=== PATIENT | male | born 2005 | race Caucasian/White ===

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

== ENCOUNTER 2023-01-31 09:45 | Inpatient (IN) | payer OTHER ==
[~2023-01-31] VITALS: Ht 175.3 cm; Wt 70.5 kg
[2023-01-31 10:20] LABS: HEMATOCRIT 50.5 % (42.0-52.0); HEMOGLOBIN 17.3 g/dl (13.5-17.5); MEAN CORPUSCULAR HEMOGLOBIN 29.4 pg (27.0-33.0); MEAN CORPUSCULAR HGB CONC 34.3 g/dl (32.0-36.5); MEAN CORPUSCULAR VOLUME 85.9 fl (80.0-96.0); PLATELET COUNT, AUTOMATED 298 10^3/uL (150-450); RED BLOOD COUNT 5.88 10^6/uL (4.30-6.10); WHITE BLOOD COUNT 9.6 10^3/uL (4.0-10.0)
[2023-01-31] MEDS ORDERED: MED REC IN PROGRESS XX SCH (10:35)
[2023-01-31] MEDS ORDERED: HOME MED LIST COMPLETE! XX SCH (10:40)
[2023-01-31 10:49] LABS: BARBITURATES URINE NEGATIVE (NEGATIVE); BENZODIAZEPINES URINE NEGATIVE (NEGATIVE); COCAINE METABOLITE URINE NEGATIVE (NEGATIVE); METHADONE URINE NEGATIVE (NEGATIVE); OPIATES URINE NEGATIVE (NEGATIVE); PHENCYCLIDINE URINE NEGATIVE (NEGATIVE)
[2023-01-31 10:51] LABS: ETHYL ALCOHOL (ETHANOL) 0.005 % (0.000-0.010)
[2023-01-31 10:52] LABS: ALBUMIN 4.9 G/DL (3.2-5.2); ALKALINE PHOSPHATASE 75 U/L (46-116); ALT/SGPT 27 U/L (7.0-40); AST/SGOT 13 U/L (<34); BLOOD UREA NITROGEN 20 MG/DL (9-23); CALCIUM LEVEL 10.9 MG/DL (8.5-10.1); CARBON DIOXIDE LEVEL 24 MMOL/L (20-31); CHLORIDE LEVEL 105 MMOL/L (98-107); CREATININE FOR GFR 0.96 MG/DL (0.70-1.30); GLUCOSE, FASTING 92 MG/DL (60-100); POTASSIUM SERUM 3.7 MMOL/L (3.5-5.1); SALICYLATE LEVEL < 3.0 MG/DL (<30); SODIUM LEVEL 142 MMOL/L (136-145); TOTAL PROTEIN 7.6 G/DL (5.7-8.2)
[2023-01-31 11:10] LABS: AMPHETAMINES LEVEL URINE POSITIVE (NEGATIVE); CANNABINOIDS URINE POSITIVE (NEGATIVE)
[2023-01-31] MEDS ORDERED: IBUPROFEN 400MG TAB PO ONE (12:20)
[2023-01-31] MEDS ORDERED: MOM 30ML SUSPENSION UDC PO PRN (13:35)
[2023-01-31] MEDS ORDERED: MAALOX 30 ML SUSP *UDC PO PRN (13:35)
[2023-01-31 15:21] VITALS: BP 142/69; TEMP 98.5; O2SAT 98
[2023-02-01 06:10] VITALS: BP 137/78; TEMP 97.8; O2SAT 98
[2023-02-01] MEDS: diphenhydrAMINE 25MG CAP PO PRN (09:09)
[2023-02-01] MEDS: busPIRone 5 MG TAB PO SCH ×2 (12:04→21:03)
[2023-02-01 18:40] VITALS: BP 144/83; TEMP 97.7; O2SAT 98
[2023-02-01] MEDS ORDERED: DIVALPROEX 500MG *ER* TAB PO SCH (21:00)
[2023-02-01] MEDS: traZODone 50 MG TAB PO PRN (21:03)
[2023-02-02 06:39] VITALS: BP 149/84; TEMP 98.8; O2SAT 99
[2023-02-02] MEDS: busPIRone 5 MG TAB PO SCH ×2 (07:33→21:02)
[2023-02-02] MEDS: NICOTINE 21MG/24HR 1 EA TRANSDERMAL TD SCH (12:12)
[2023-02-02 17:25] VITALS: BP 129/77; TEMP 98; O2SAT 98
[2023-02-02] MEDS: traZODone 50 MG TAB PO PRN (21:02)
[2023-02-02] MEDS: DIVALPROEX 250MG *ER* TAB PO SCH (21:02)
[2023-02-03 06:34] VITALS: BP 127/72; TEMP 98.8; O2SAT 100
[2023-02-03] MEDS: busPIRone 5 MG TAB PO SCH ×2 (08:54→20:14)
[2023-02-03] MEDS: NICOTINE 21MG/24HR 1 EA TRANSDERMAL TD SCH (08:54)
[2023-02-03 16:36] VITALS: BP 148/73; TEMP 97.7; O2SAT 99
[2023-02-03] MEDS: traZODone 50 MG TAB PO PRN (20:14)
[2023-02-03] MEDS: DIVALPROEX 250MG *ER* TAB PO SCH (20:14)
[2023-02-04 06:13] VITALS: BP 132/67; TEMP 97.7; O2SAT 98
[2023-02-04] MEDS: busPIRone 5 MG TAB PO SCH ×2 (08:28→20:12)
[2023-02-04] MEDS: NICOTINE 21MG/24HR 1 EA TRANSDERMAL TD SCH (08:28)
[2023-02-04] MEDS: IBUPROFEN 400MG TAB PO PRN ×3 (08:37→21:37)
[2023-02-04] MEDS: diphenhydrAMINE 25MG CAP PO PRN ×2 (09:51→16:09)
[2023-02-04 16:35] VITALS: BP 134/85; TEMP 98.5; O2SAT 96
[2023-02-04] MEDS: ACETAMINOPHEN TAB 650MG DOSE (2X325MG) PO PRN (18:25)
[2023-02-04] MEDS: traZODone 50 MG TAB PO PRN (20:12)
[2023-02-04] MEDS: DIVALPROEX 250MG *ER* TAB PO SCH (20:12)
[2023-02-05 06:31] VITALS: BP 139/69; TEMP 98.1; O2SAT 97
[2023-02-05] MEDS: busPIRone 5 MG TAB PO SCH ×2 (08:39→20:13)
[2023-02-05] MEDS: NICOTINE 21MG/24HR 1 EA TRANSDERMAL TD SCH (08:39)
[2023-02-05] MEDS: IBUPROFEN 400MG TAB PO PRN ×2 (13:30→20:14)
[2023-02-05] MEDS: ACETAMINOPHEN TAB 650MG DOSE (2X325MG) PO PRN ×2 (15:39→22:48)
[2023-02-05] MEDS: diphenhydrAMINE 25MG CAP PO PRN ×2 (16:44→22:48)
[2023-02-05 18:13] VITALS: BP 140/67; TEMP 99; O2SAT 96
[2023-02-05] MEDS: BENZOCAINE 10% 9GM TUBE (ANBESOL) TOP PRN (20:13)
[2023-02-05] MEDS: traZODone 50 MG TAB PO PRN (20:14)
[2023-02-05] MEDS: DIVALPROEX 250MG *ER* TAB PO SCH (20:15)
[2023-02-06 06:26] VITALS: BP 145/76; TEMP 97.5; O2SAT 96
[2023-02-06] MEDS: NICOTINE 21MG/24HR 1 EA TRANSDERMAL TD SCH (09:05)
[2023-02-06] MEDS: busPIRone 5 MG TAB PO SCH ×2 (09:05→20:16)
[2023-02-06] MEDS: IBUPROFEN 400MG TAB PO PRN ×2 (09:49→17:52)
[2023-02-06] MEDS: BENZOCAINE 10% 9GM TUBE (ANBESOL) TOP PRN ×4 (09:50→18:46)
[2023-02-06] MEDS: diphenhydrAMINE 25MG CAP PO PRN ×2 (12:44→20:16)
[2023-02-06] MEDS: ACETAMINOPHEN TAB 650MG DOSE (2X325MG) PO PRN (12:45)
[2023-02-06] MEDS: PROPRANOLOL 10 MG TAB PO SCH ×2 (13:33→20:16)
[2023-02-06 16:40] VITALS: BP 142/78; TEMP 98.3; O2SAT 98
[2023-02-06 20:15] VITALS: BP 183/83
[2023-02-06] MEDS: traZODone 50 MG TAB PO PRN (20:15)
[2023-02-06] MEDS: DIVALPROEX 250MG *ER* TAB PO SCH (20:16)
[2023-02-07 06:46] VITALS: BP 137/58; TEMP 98.5; O2SAT 99
[2023-02-07 08:41] VITALS: BP 137/68
[2023-02-07] MEDS: PROPRANOLOL 10 MG TAB PO SCH (08:41)
[2023-02-07] MEDS: NICOTINE 21MG/24HR 1 EA TRANSDERMAL TD SCH (08:41)
[2023-02-07] MEDS: busPIRone 5 MG TAB PO SCH (08:41)
[2023-02-07] MEDS: IBUPROFEN 400MG TAB PO PRN (09:59)
[2023-02-07] MEDS ORDERED: PROP10TA56 PO (10:21)
[2023-02-07] MEDS ORDERED: NICO21PAT TD (10:21)
[2023-02-07] MEDS ORDERED: DEPA250T2 PO (10:21)
[2023-02-07] MEDS ORDERED: TRAZ-252 PO (10:21)
[2023-02-07] MEDS ORDERED: BUSP5TA PO (10:21)
[2023-02-07] MEDS ORDERED: HYDR-3363 PO (12:57)
== END 2023-02-07 11:30 | disposition home or self-care (01) | DRG 880 ==
LOC: M ED 09:45 → M ED INP 13:32 → M PSY 15:26
PROVIDERS: ADMIT Student in an Organized Health Care Education/Training Program; ATTEND Student in an Organized Health Care Education/Training Program
DX: F41.1 Generalized anxiety disorder (principal); R45.851 Suicidal ideations; F40.01 Agoraphobia with panic disorder; F17.200 Nicotine dependence, unspecified, uncomplicated; F15.10 Other stimulant abuse, uncomplicated; G47.00 Insomnia, unspecified; E80.6 Other disorders of bilirubin metabolism; F12.10 Cannabis abuse, uncomplicated; F90.9 Attention-deficit hyperactivity disorder, unspecified type; Z91.51 Personal history of suicidal behavior; Z56.0 Unemployment, unspecified; Z20.822 Contact with and (suspected) exposure to COVID-19; E83.52 Hypercalcemia; Z71.6 Tobacco abuse counseling

== ENCOUNTER 2023-02-17 13:55 | Outpatient (RCR) | payer OTHER ==
[~2023-02-17 13:55] MED LIST changes: +BUSP5TA PO; +DEPA250T2 PO; +HYDR-3363 PO; +NICO21PAT TD; +PROP10TA56 PO; +TRAZ-252 PO
== END 2023-02-19 ==
LOC: M OUTALCOH 13:55
PROVIDERS: ATTEND Psychiatry & Neurology Psychiatry
DX: F15.20 Other stimulant dependence, uncomplicated (principal); F11.20 Opioid dependence, uncomplicated; F12.10 Cannabis abuse, uncomplicated; F10.20 Alcohol dependence, uncomplicated; F17.200 Nicotine dependence, unspecified, uncomplicated

== ENCOUNTER 2023-03-21 16:00 | Outpatient (RCR) | payer OTHER | END 2023-03-22 | LOC: M OUTALCOH 16:00 | PROVIDERS: ATTEND Psychiatry & Neurology Child & Adolescent Psychiatry | DX: F15.20 Other stimulant dependence, uncomplicated (principal); F11.20 Opioid dependence, uncomplicated; F12.20 Cannabis dependence, uncomplicated; F10.20 Alcohol dependence, uncomplicated; F17.200 Nicotine dependence, unspecified, uncomplicated ==

== ENCOUNTER → 2023-03-22 | Outpatient (RCR) | payer OTHER | LOC: M OUTALCOH 16:11 | PROVIDERS: ATTEND Psychiatry & Neurology Psychiatry | DX: F15.20 Other stimulant dependence, uncomplicated (principal); F11.20 Opioid dependence, uncomplicated; F12.20 Cannabis dependence, uncomplicated; F10.20 Alcohol dependence, uncomplicated; F17.200 Nicotine dependence, unspecified, uncomplicated ==

== ENCOUNTER 2023-03-31 21:37 | Inpatient (IN) | payer OTHER ==
[~2023-03-31] VITALS: Ht 175.3 cm; Wt 86.0 kg
[2023-03-31] MEDS ORDERED: NICO1DIS12 TOP (22:49)
[2023-03-31] MEDS ORDERED: HYDR50TA70 PO (22:49)
[2023-03-31] MEDS ORDERED: TRAZ-252 PO (22:49)
[2023-03-31] MEDS ORDERED: PROP10TA56 PO (22:49)
[2023-03-31] MEDS ORDERED: DIVA250T7 PO (22:49)
[2023-03-31] MEDS ORDERED: BUSP15TA47 PO (22:49)
[2023-03-31] MEDS ORDERED: HOME MED LIST COMPLETE! XX SCH (22:50)
[2023-03-31 23:00] LABS: HEMATOCRIT 43.8 % (42.0-52.0); MEAN CORPUSCULAR HEMOGLOBIN 30.4 pg (27.0-33.0); MEAN CORPUSCULAR HGB CONC 34.2 g/dl (32.0-36.5); MEAN CORPUSCULAR VOLUME 88.7 fl (80.0-96.0); PLATELET COUNT, AUTOMATED 183 10^3/uL (150-450); RED BLOOD COUNT 4.94 10^6/uL (4.30-6.10)
[2023-03-31 23:17] LABS: AMPHETAMINES LEVEL URINE NEGATIVE (NEGATIVE); BARBITURATES URINE NEGATIVE (NEGATIVE); BENZODIAZEPINES URINE NEGATIVE (NEGATIVE); COCAINE METABOLITE URINE NEGATIVE (NEGATIVE); METHADONE URINE NEGATIVE (NEGATIVE); OPIATES URINE NEGATIVE (NEGATIVE); PHENCYCLIDINE URINE NEGATIVE (NEGATIVE)
[2023-03-31 23:18] LABS: CANNABINOIDS URINE POSITIVE (NEGATIVE)
[2023-03-31 23:19] LABS: ETHYL ALCOHOL (ETHANOL) 0.008 % (0.000-0.010)
[2023-03-31 23:20] LABS: SALICYLATE LEVEL < 3.0 MG/DL (<30)
[2023-03-31 23:21] LABS: ALKALINE PHOSPHATASE 49 U/L (46-116); ALT/SGPT 18 U/L (7.0-40); AST/SGOT < 8 U/L (<34); BILIRUBIN,DIRECT 0.3 MG/DL (<0.4); BILIRUBIN,TOTAL 0.9 MG/DL (0.3-1.2); BLOOD UREA NITROGEN 14 MG/DL (9-23); CARBON DIOXIDE LEVEL 27 MMOL/L (20-31); CHLORIDE LEVEL 107 MMOL/L (98-107); CREATININE FOR GFR 0.96 MG/DL (0.70-1.30); GLUCOSE, FASTING 74 MG/DL (60-100); POTASSIUM SERUM 3.8 MMOL/L (3.5-5.1); SODIUM LEVEL 141 MMOL/L (136-145); TOTAL PROTEIN 6.6 G/DL (5.7-8.2)
[2023-03-31 23:23] LABS: THYROID STIMULATING HORMONE 2.012 uIU/ML (0.48-4.17)
[2023-04-01] MEDS ORDERED: MAALOX 30 ML SUSP *UDC PO PRN (03:10)
[2023-04-01] MEDS ORDERED: ACETAMINOPHEN TAB 650MG DOSE (2X325MG) PO PRN (03:10)
[2023-04-01] MEDS ORDERED: MOM 30ML SUSPENSION UDC PO PRN (03:10)
[2023-04-01 05:07] VITALS: BP 105/57; TEMP 97.6; O2SAT 98
[2023-04-01] MEDS: diphenhydrAMINE 25MG CAP PO PRN (15:35)
[2023-04-01 16:29] VITALS: BP 138/78; TEMP 98.5; O2SAT 98
[2023-04-01] MEDS: busPIRone 5 MG TAB PO SCH (20:11)
[2023-04-01] MEDS: traZODone 50 MG TAB PO PRN (20:11)
[2023-04-01] MEDS: DIVALPROEX 250MG *ER* TAB PO SCH (20:12)
[2023-04-01] MEDS: PROPRANOLOL 10 MG TAB PO SCH (20:12)
[2023-04-02 06:28] VITALS: BP 138/59; TEMP 97.9; O2SAT 98
[2023-04-02] MEDS: hydrOXYzine 50 MG TAB PO PRN (11:50)
[2023-04-02] MEDS: OLANZapine ORAL DISINTEGRATING TAB 5MG PO PRN (14:14)
[2023-04-02 15:25] VITALS: BP 119/76; TEMP 97.8; O2SAT 100
[2023-04-03 06:27] VITALS: BP 143/61; TEMP 96.7; O2SAT 98
[2023-04-03 08:20] VITALS: BP 136/78
[2023-04-03 18:23] VITALS: BP 151/82; TEMP 98.1; O2SAT 98
[2023-04-03 20:19] VITALS: BP 160/98
[2023-04-03] MEDS: OLANZapine 2.5MG TABLET PO SCH (20:21)
[2023-04-04] MEDS: IBUPROFEN 400MG TAB PO PRN (00:04)
[2023-04-04 06:08] VITALS: BP 119/71; TEMP 96.2; O2SAT 99
[2023-04-04 09:36] LABS: CHOLESTEROL RISK RATIO 3.11 (<5); LDL CHOLESTEROL 97.4 MG/DL (<100)
[2023-04-04 14:39] VITALS: BP 179/102
[2023-04-04 18:33] VITALS: BP 155/85; TEMP 97.3; O2SAT 98
[2023-04-04 21:49] VITALS: BP 138/82; O2SAT 68
[2023-04-05 06:52] VITALS: BP 133/57; TEMP 96.4; O2SAT 96
[2023-04-05 14:50] VITALS: BP 140/90; TEMP 98.5; O2SAT 98
[2023-04-06 06:27] VITALS: BP 104/59; TEMP 96.6; O2SAT 97
[2023-04-06 08:22] VITALS: BP 154/69
[2023-04-06] MEDS ORDERED: DIVA250T7 PO (12:28)
[2023-04-06] MEDS ORDERED: OLAN2.5T25 PO (12:28)
[2023-04-06] MEDS ORDERED: TRAZ-252 PO (12:28)
[2023-04-06] MEDS ORDERED: BUSP15TA47 PO (12:28)
== END 2023-04-06 12:57 | disposition home or self-care (01) | DRG 880 ==
LOC: M ED 21:37 → M ED INP 04-01 03:10 → M PSY 04-01 04:21
PROVIDERS: ADMIT Student in an Organized Health Care Education/Training Program; ATTEND Student in an Organized Health Care Education/Training Program
DX: F41.1 Generalized anxiety disorder (principal); R45.851 Suicidal ideations; F32.89 Other specified depressive episodes; F15.10 Other stimulant abuse, uncomplicated; F10.10 Alcohol abuse, uncomplicated; F60.89 Other specific personality disorders; Z63.5 Disruption of family by separation and divorce; Z91.51 Personal history of suicidal behavior; Z91.52 Personal history of nonsuicidal self-harm; Z79.899 Other long term (current) drug therapy

== ENCOUNTER 2023-05-17 18:44 | Emergency (ER) | payer OTHER ==
[~2023-05-17] VITALS: Ht 175.3 cm; Wt 93.2 kg
[~2023-05-17 18:44] MED LIST changes: +BUSP15TA47 PO; +DIVA250T7 PO; +HYDR50TA70 PO; +NICO1DIS12 TOP; +OLAN2.5T25 PO
[2023-05-17] MEDS ORDERED: PROP20TA72 PO (18:57)
[2023-05-17] MEDS ORDERED: OLAN5ZYD (18:57)
[2023-05-17 19:31] LABS: BASO # 0.1 10^3/uL (0.0-0.2); BASO % 1.4 % (0.0-1.0); EOS # 0.7 10^3/uL (0.0-0.5); EOS % 8.5 % (0.0-3.0); HEMATOCRIT 45.1 % (42.0-52.0); HEMOGLOBIN 15.8 g/dl (13.5-17.5); LYMPH # 1.7 10^3/uL (1.5-5.0); LYMPH % 20.9 % (24.0-44.0); MEAN CORPUSCULAR HEMOGLOBIN 30.2 pg (27.0-33.0); MEAN CORPUSCULAR VOLUME 86.1 fl (80.0-96.0); MONO # 0.8 10^3/uL (0.0-0.8); MONO % 10.1 % (2.0-8.0); NEUTROPHILS # 4.8 10^3/uL (1.5-8.5); NEUTROPHILS % 58.9 % (36.0-66.0); PLATELET COUNT, AUTOMATED 228 10^3/uL (150-450); RED BLOOD COUNT 5.24 10^6/uL (4.30-6.10); WHITE BLOOD COUNT 8.1 10^3/uL (4.0-10.0)
[2023-05-17 19:50] LABS: ETHYL ALCOHOL (ETHANOL) 0.005 % (0.000-0.010)
[2023-05-17 19:52] LABS: ALBUMIN 4.1 G/DL (3.2-5.2); ALKALINE PHOSPHATASE 60 U/L (46-116); ALT/SGPT 19 U/L (7.0-40); AST/SGOT 12 U/L (<34); BILIRUBIN,DIRECT 0.8 MG/DL (<0.4); BILIRUBIN,TOTAL 2.7 MG/DL (0.3-1.2); BLOOD UREA NITROGEN 19 MG/DL (9-23); CALCIUM LEVEL 9.7 MG/DL (8.5-10.1); CARBON DIOXIDE LEVEL 26 MMOL/L (20-31); CHLORIDE LEVEL 107 MMOL/L (98-107); CREATININE FOR GFR 0.88 MG/DL (0.70-1.30); GLUCOSE, FASTING 88 MG/DL (60-100); POTASSIUM SERUM 3.9 MMOL/L (3.5-5.1); SALICYLATE LEVEL < 3.0 MG/DL (<30); SODIUM LEVEL 139 MMOL/L (136-145)
[2023-05-17 19:54] LABS: THYROID STIMULATING HORMONE 0.866 uIU/ML (0.48-4.17)
[2023-05-17] MEDS ORDERED: OLAN5ZYD PO ×2 (20:07)
[2023-05-17] MEDS ORDERED: DIVA250T67 PO (20:07)
[2023-05-17] MEDS ORDERED: TRAZ-257 PO (20:09)
[2023-05-17] MEDS ORDERED: HOME MED LIST COMPLETE! XX SCH (20:45)
[2023-05-17 21:13] LABS: BARBITURATES URINE NEGATIVE (NEGATIVE); BENZODIAZEPINES URINE NEGATIVE (NEGATIVE); COCAINE METABOLITE URINE NEGATIVE (NEGATIVE); METHADONE URINE NEGATIVE (NEGATIVE); OPIATES URINE NEGATIVE (NEGATIVE); PHENCYCLIDINE URINE NEGATIVE (NEGATIVE)
[2023-05-17 21:16] LABS: AMPHETAMINES LEVEL URINE POSITIVE (NEGATIVE); CANNABINOIDS URINE POSITIVE (NEGATIVE)
[2023-05-17] MEDS: busPIRone 5 MG TAB PO ONE (21:37)
[2023-05-17] MEDS: traZODone 100 MG TAB PO ONE (21:38)
[2023-05-17] MEDS: DIVALPROEX 250MG TAB PO ONE ×2 (21:38→21:52)
[2023-05-17] MEDS: OLANZapine 5 MG TAB PO ONE (21:38)
[2023-05-17 23:16] VITALS: BP 156/63
[2023-05-17] MEDS: PROPRANOLOL 20 MG TAB PO ONE (23:16)
[2023-05-18 00:18] VITALS: BP 131/60; TEMP 98.2; O2SAT 99
== END 2023-05-18 00:26 | disposition home or self-care (01) ==
LOC: M ED 18:44
DX: F43.0 Acute stress reaction (principal); F32.A Depression, unspecified; F31.9 Bipolar disorder, unspecified; F41.9 Anxiety disorder, unspecified; F17.200 Nicotine dependence, unspecified, uncomplicated; F12.10 Cannabis abuse, uncomplicated; Z79.899 Other long term (current) drug therapy

== ENCOUNTER 2023-08-05 03:14 | Inpatient (IN) | payer OTHER ==
[~2023-08-05] VITALS: Ht 177.8 cm; Wt 102.3 kg
[~2023-08-05 03:14] MED LIST changes: +DIVA250T67 PO; +OLAN5ZYD; +OLAN5ZYD PO; +ONDA-282; -ONDA4TAB6; +PROP20TA72 PO; +TRAZ-257 PO
[2023-08-05] MEDS ORDERED: LEXA1TAB2 PO (03:49)
[2023-08-05] MEDS ORDERED: DOXE10CA PO (03:49)
[2023-08-05 03:55] LABS: HEMATOCRIT 46.3 % (42.0-52.0); HEMOGLOBIN 16.3 g/dl (13.5-17.5); MEAN CORPUSCULAR HEMOGLOBIN 29.4 pg (27.0-33.0); MEAN CORPUSCULAR HGB CONC 35.2 g/dl (32.0-36.5); MEAN CORPUSCULAR VOLUME 83.4 fl (80.0-96.0); PLATELET COUNT, AUTOMATED 346 10^3/uL (150-450); RED BLOOD COUNT 5.55 10^6/uL (4.30-6.10); WHITE BLOOD COUNT 16.5 10^3/uL (4.0-10.0)
[2023-08-05 04:14] LABS: AMPHETAMINES LEVEL URINE NEGATIVE (NEGATIVE); BARBITURATES URINE NEGATIVE (NEGATIVE); BENZODIAZEPINES URINE NEGATIVE (NEGATIVE); METHADONE URINE NEGATIVE (NEGATIVE); OPIATES URINE NEGATIVE (NEGATIVE)
[2023-08-05 04:15] LABS: PHENCYCLIDINE URINE NEGATIVE (NEGATIVE)
[2023-08-05 04:16] LABS: CANNABINOIDS URINE POSITIVE (NEGATIVE); COCAINE METABOLITE URINE POSITIVE (NEGATIVE)
[2023-08-05 04:17] LABS: ETHYL ALCOHOL (ETHANOL) 0.082 % (0.000-0.010)
[2023-08-05 04:19] LABS: ALBUMIN 4.5 G/DL (3.2-5.2); ALKALINE PHOSPHATASE 74 U/L (46-116); ALT/SGPT 19 U/L (7.0-40); AST/SGOT 13 U/L (<34); BILIRUBIN,DIRECT 0.4 MG/DL (<0.4); BILIRUBIN,TOTAL 1.3 MG/DL (0.3-1.2); BLOOD UREA NITROGEN 12 MG/DL (9-23); CALCIUM LEVEL 10.2 MG/DL (8.5-10.1); CARBON DIOXIDE LEVEL 23 MMOL/L (20-31); CHLORIDE LEVEL 102 MMOL/L (98-107); CREATININE FOR GFR 0.97 MG/DL (0.70-1.30); GLUCOSE, FASTING 86 MG/DL (60-100); POTASSIUM SERUM 3.5 MMOL/L (3.5-5.1); SALICYLATE LEVEL < 3.0 MG/DL (<30); SODIUM LEVEL 137 MMOL/L (136-145); TOTAL PROTEIN 7.6 G/DL (5.7-8.2)
[2023-08-05 04:21] LABS: THYROID STIMULATING HORMONE 1.943 uIU/ML (0.48-4.17)
[2023-08-05] MEDS ORDERED: MOM 30ML SUSPENSION UDC PO PRN (06:35)
[2023-08-05] MEDS ORDERED: IBUPROFEN 400MG TAB PO PRN (06:35)
[2023-08-05] MEDS ORDERED: traZODone 50 MG TAB PO PRN (06:35)
[2023-08-05] MEDS ORDERED: ACETAMINOPHEN TAB 650MG DOSE (2X325MG) PO PRN (06:35)
[2023-08-05] MEDS ORDERED: MAALOX 30 ML SUSP *UDC PO PRN (06:35)
[2023-08-05 08:32] VITALS: BP 140/70; TEMP 97.5; O2SAT 99
[2023-08-05] MEDS ORDERED: BUSP30TA PO (09:19)
[2023-08-05] MEDS ORDERED: OLAN10TA12 PO (09:19)
[2023-08-05] MEDS ORDERED: LATU20TA PO (09:21)
[2023-08-05] MEDS ORDERED: HOME MED LIST COMPLETE! XX SCH (09:25)
[2023-08-05 16:12] VITALS: BP 141/77; TEMP 97.5; O2SAT 100
[2023-08-05] MEDS: PROPRANOLOL 20 MG TAB PO SCH (21:53)
[2023-08-05] MEDS: DOXEPIN 25 MG CAP PO SCH (21:53)
[2023-08-05] MEDS: DIVALPROEX 500MG *ER* TAB PO SCH (21:53)
[2023-08-05] MEDS: busPIRone 10 MG TAB PO SCH (21:54)
[2023-08-05] MEDS: LURASIDONE 20 MG TAB (LATUDA) PO SCH (21:54)
[2023-08-05 22:00] VITALS: BP 140/89
[2023-08-06 06:23] VITALS: BP 114/79; TEMP 98; O2SAT 98
[2023-08-06 06:24] VITALS: BP 114/79
[2023-08-06 08:16] LABS: BASO # 0.1 10^3/uL (0.0-0.2); BASO % 1.2 % (0.0-1.0); EOS # 0.6 10^3/uL (0.0-0.5); HEMATOCRIT 46.1 % (42.0-52.0); HEMOGLOBIN 15.7 g/dl (13.5-17.5); LYMPH # 1.2 10^3/uL (1.5-5.0); LYMPH % 17.6 % (24.0-44.0); MEAN CORPUSCULAR HEMOGLOBIN 29.4 pg (27.0-33.0); MEAN CORPUSCULAR HGB CONC 34.1 g/dl (32.0-36.5); MEAN CORPUSCULAR VOLUME 86.3 fl (80.0-96.0); MONO # 0.6 10^3/uL (0.0-0.8); MONO % 8.5 % (2.0-8.0); NEUTROPHILS # 4.2 10^3/uL (1.5-8.5); NEUTROPHILS % 63.4 % (36.0-66.0); PLATELET COUNT, AUTOMATED 251 10^3/uL (150-450); RED BLOOD COUNT 5.34 10^6/uL (4.30-6.10); WHITE BLOOD COUNT 6.6 10^3/uL (4.0-10.0)
[2023-08-06 08:54] LABS: ALBUMIN 3.7 G/DL (3.2-5.2); ALKALINE PHOSPHATASE 62 U/L (46-116); ALT/SGPT 16 U/L (7.0-40); AST/SGOT 8 U/L (<34); BILIRUBIN,TOTAL 1.6 MG/DL (0.3-1.2); BLOOD UREA NITROGEN 13 MG/DL (9-23); CALCIUM LEVEL 9.7 MG/DL (8.5-10.1); CARBON DIOXIDE LEVEL 30 MMOL/L (20-31); CHLORIDE LEVEL 104 MMOL/L (98-107); CREATININE FOR GFR 0.87 MG/DL (0.70-1.30); GLUCOSE, FASTING 92 MG/DL (60-100); POTASSIUM SERUM 4.3 MMOL/L (3.5-5.1); SODIUM LEVEL 138 MMOL/L (136-145); TOTAL PROTEIN 6.4 G/DL (5.7-8.2)
[2023-08-06] MEDS: diphenhydrAMINE 25MG CAP PO PRN (10:41)
[2023-08-06] MEDS: NICOTINE 21MG/24HR 1 EA TRANSDERMAL TD PRN (11:22)
[2023-08-06] MEDS: OLANZapine ORAL DISINTEGRATING TAB 5MG PO PRN (12:42)
[2023-08-06] MEDS: ESCITALOPRAM OXALATE 10 MG TAB (LEXAPRO) PO SCH (12:42)
[2023-08-07 06:27] VITALS: BP 116/56; TEMP 97.7; O2SAT 97
[2023-08-07 09:48] VITALS: BP 149/71
[2023-08-07] MEDS ORDERED: NICO21PAT TD (10:01)
== END 2023-08-07 13:42 | disposition home or self-care (01) | DRG 881 ==
LOC: M ED 03:14 → M ED INP 06:32 → M PSY 08:25
PROVIDERS: ADMIT Student in an Organized Health Care Education/Training Program; ATTEND Student in an Organized Health Care Education/Training Program
DX: F32.A Depression, unspecified (principal); R45.851 Suicidal ideations; F17.210 Nicotine dependence, cigarettes, uncomplicated; Z63.0 Problems in relationship with spouse or partner; Z79.899 Other long term (current) drug therapy

== ENCOUNTER 2023-09-04 20:01 | Inpatient (IN) | payer OTHER ==
[~2023-09-04] VITALS: Ht 177.8 cm; Wt 97.0 kg
[~2023-09-04 20:01] MED LIST changes: +BUSP30TA PO; +DOXE10CA PO; +LATU20TA PO; +LEXA1TAB2 PO; +OLAN10TA12 PO
[2023-09-04 21:10] LABS: ETHYL ALCOHOL (ETHANOL) < 0.003 % (0.000-0.010)
[2023-09-04 21:12] LABS: ALKALINE PHOSPHATASE 67 U/L (46-116); ALT/SGPT 20 U/L (7.0-40); AST/SGOT 24 U/L (<34); BILIRUBIN,DIRECT 0.8 MG/DL (<0.4); BILIRUBIN,TOTAL 2.8 MG/DL (0.3-1.2); BLOOD UREA NITROGEN 12 MG/DL (9-23); CALCIUM LEVEL 9.7 MG/DL (8.5-10.1); CARBON DIOXIDE LEVEL 28 MMOL/L (20-31); CHLORIDE LEVEL 103 MMOL/L (98-107); CREATININE FOR GFR 0.87 MG/DL (0.70-1.30); GLUCOSE, FASTING 91 MG/DL (60-100); POTASSIUM SERUM 3.6 MMOL/L (3.5-5.1); SALICYLATE LEVEL < 3.0 MG/DL (<30); SODIUM LEVEL 138 MMOL/L (136-145)
[2023-09-04 21:15] LABS: HEMATOCRIT 43.1 % (42.0-52.0); HEMOGLOBIN 15.1 g/dl (13.5-17.5); MEAN CORPUSCULAR HEMOGLOBIN 29.6 pg (27.0-33.0); MEAN CORPUSCULAR VOLUME 84.5 fl (80.0-96.0); PLATELET COUNT, AUTOMATED 229 10^3/uL (150-450); THYROID STIMULATING HORMONE 0.824 uIU/ML (0.48-4.17)
[2023-09-04] MEDS: LORazepam 0.5 MG TAB PO ONE (21:51)
[2023-09-04] MEDS: ACETAMINOPHEN 500 MG TAB PO ONE (21:51)
[2023-09-04] MEDS: MAGIC MOUTHWASH 5ML ORAL SYRINGE SS ONE (22:01)
[2023-09-05] MEDS ORDERED: DOXE25CA PO (01:42)
[2023-09-05] MEDS ORDERED: NICO21PAT TOP (01:42)
[2023-09-05] MEDS ORDERED: HOME MED LIST COMPLETE! XX SCH (01:45)
[2023-09-05] MEDS: hydrOXYzine 50 MG TAB PO ONE (13:34)
[2023-09-05] MEDS ORDERED: MAALOX 30 ML SUSP *UDC PO PRN (14:15)
[2023-09-05] MEDS ORDERED: IBUPROFEN 400MG TAB PO PRN (14:15)
[2023-09-05] MEDS ORDERED: MOM 30ML SUSPENSION UDC PO PRN (14:15)
[2023-09-05 15:48] LABS: BARBITURATES URINE NEGATIVE (NEGATIVE); BENZODIAZEPINES URINE NEGATIVE (NEGATIVE); COCAINE METABOLITE URINE NEGATIVE (NEGATIVE); METHADONE URINE NEGATIVE (NEGATIVE); OPIATES URINE NEGATIVE (NEGATIVE); PHENCYCLIDINE URINE NEGATIVE (NEGATIVE)
[2023-09-05 15:57] LABS: AMPHETAMINES LEVEL URINE POSITIVE (NEGATIVE); CANNABINOIDS URINE POSITIVE (NEGATIVE)
[2023-09-05] MEDS: diphenhydrAMINE 25MG CAP PO PRN (20:02)
[2023-09-05] MEDS: traZODone 50 MG TAB PO PRN (20:02)
[2023-09-05] MEDS: ACETAMINOPHEN TAB 650MG DOSE (2X325MG) PO PRN (20:18)
[2023-09-05] MEDS: OLANZapine ORAL DISINTEGRATING TAB 5MG PO PRN (21:34)
[2023-09-05] MEDS: NICOTINE POLACRILEX 2 MG GUM PO PRN (21:35)
[2023-09-06 06:31] VITALS: BP 138/79; TEMP 97.9; O2SAT 100
[2023-09-06] MEDS: LIDOCAINE 5% (LIDODERM) PATCH TD SCH (09:00)
[2023-09-06] MEDS: BACITRACIN OINTMENT 30GM TUBE TOP SCH (09:00)
[2023-09-06] MEDS ORDERED: CHLORASEPTIC SPRAY MT PRN (10:00)
[2023-09-06] MEDS ORDERED: hydrOXYzine 50 MG TAB PO PRN (13:45)
[2023-09-06] MEDS: busPIRone 10 MG TAB PO SCH (15:08)
[2023-09-06] MEDS: PROPRANOLOL 20 MG TAB PO SCH (15:08)
[2023-09-06] MEDS: ESCITALOPRAM OXALATE 10 MG TAB (LEXAPRO) PO SCH (15:08)
[2023-09-06 17:29] VITALS: BP 148/71; TEMP 98.3
[2023-09-06] MEDS: DIVALPROEX 250MG *ER* TAB PO SCH (21:48)
[2023-09-06] MEDS: LURASIDONE 20 MG TAB (LATUDA) PO SCH (21:48)
[2023-09-07 06:34] VITALS: BP 144/74; TEMP 96.7; O2SAT 98
[2023-09-07 18:56] VITALS: BP 139/76; TEMP 98.1; O2SAT 100
[2023-09-08] MEDS ORDERED: busPIRone 10 MG TAB As Ordered ONE (10:07)
[2023-09-08] MEDS ORDERED: ESCITALOPRAM OXALATE 10 MG TAB (LEXAPRO) As Ordered ONE (10:07)
[2023-09-08] MEDS ORDERED: PROPRANOLOL 20 MG TAB As Ordered ONE (10:07)
[2023-09-08] MEDS ORDERED: LIDOCAINE 5% (LIDODERM) PATCH As Ordered ONE (10:07)
[2023-09-08 10:14] VITALS: BP 139/89
== END 2023-09-08 14:02 | disposition home or self-care (01) | DRG 881 ==
LOC: M ED 20:01 → M ED INP 09-05 14:11 → M PSY 09-05 16:28
PROVIDERS: ADMIT Student in an Organized Health Care Education/Training Program; ATTEND Student in an Organized Health Care Education/Training Program
DX: F32.A Depression, unspecified (principal); F90.9 Attention-deficit hyperactivity disorder, unspecified type; F41.1 Generalized anxiety disorder; F40.01 Agoraphobia with panic disorder; F15.10 Other stimulant abuse, uncomplicated; F12.10 Cannabis abuse, uncomplicated; F17.290 Nicotine dependence, other tobacco product, uncomplicated; T43.012A Poisoning by tricyclic antidepressants, intentional self-harm, initial encounter; T43.212A Poisoning by selective serotonin and norepinephrine reuptake inhibitors, intentional self-harm, initial encounter; F60.81 Narcissistic personality disorder; F60.2 Antisocial personality disorder; T43.595A Adverse effect of other antipsychotics and neuroleptics, initial encounter; F60.3 Borderline personality disorder; Z79.899 Other long term (current) drug therapy; Z63.5 Disruption of family by separation and divorce; Z56.0 Unemployment, unspecified; Z91.51 Personal history of suicidal behavior

== ENCOUNTER 2023-11-15 15:53 | Emergency (ER) | payer OTHER ==
[~2023-11-15] VITALS: Ht 177.8 cm; Wt 104.1 kg
[~2023-11-15 15:53] MED LIST changes: +DOXE25CA PO; +NICO21PAT TOP
[2023-11-15] MEDS ORDERED: AMOX875T2 (16:06)
[2023-11-15] MEDS ORDERED: BUPR1FIL (16:06)
[2023-11-15] MEDS ORDERED: LURA40TA2 (16:06)
[2023-11-16] MEDS ORDERED: IBUP-1022 PO (00:26)
[2023-11-16] MEDS ORDERED: METH-1164 PO (00:26)
[2023-11-16] MEDS ORDERED: CEPH500C PO (00:26)
[2023-11-16] MEDS: CEPHALEXIN 500 MG CAP PO ONE (00:35)
[2023-11-16] MEDS: methocarbamoL 500 MG TAB PO ONE (00:36)
[2023-11-16] MEDS: IBUPROFEN 600MG TAB PO ONE (00:36)
[2023-11-16] MEDS: BOOSTRIX VACCINE (TETANUS/DIPHTH/ACEL. PERTUSSIS) 0.5ML SYR IM ONE (00:37)
[2023-11-16 00:44] VITALS: BP 127/70; TEMP 98.4; O2SAT 98
== END 2023-11-16 00:47 | disposition home or self-care (01) ==
LOC: M ED 15:53
DX: S13.4XXA Sprain of ligaments of cervical spine, initial encounter (principal); Y92.9 Unspecified place or not applicable; Y93.9 Activity, unspecified; Y99.9 Unspecified external cause status; I10 Essential (primary) hypertension; F31.9 Bipolar disorder, unspecified; Z79.2 Long term (current) use of antibiotics; Z79.1 Long term (current) use of non-steroidal anti-inflammatories (NSAID); Z79.899 Other long term (current) drug therapy

== ENCOUNTER 2024-01-11 21:17 | Emergency (ER) | payer OTHER ==
[~2024-01-11] VITALS: Ht 177.8 cm; Wt 92.6 kg
[~2024-01-11 21:17] MED LIST changes: +AMOX875T2; +BUPR1FIL; +CEPH500C PO; +IBUP-1022 PO; +LURA40TA2; +METH-1164 PO; -OLAN2.5T25 PO; +OLAN2.5T53 PO
[2024-01-11] MEDS ORDERED: KETOROLAC 30 MG/ML 1ML VIAL IV ONE (23:00)
[2024-01-11] MEDS ORDERED: ISOVUE-370 76% 100ML VIAL As Ordered ONE (23:39)
[2024-01-12] VITALS: BP 136/75
[2024-01-12 00:02] VITALS: TEMP 98.1; O2SAT 99
[2024-01-12] MEDS ORDERED: CLEO300C2 PO (00:32)
== END 2024-01-12 00:12 | disposition left against medical advice (07) ==
LOC: M ED 21:17
DX: K08.89 Other specified disorders of teeth and supporting structures (principal); Z79.1 Long term (current) use of non-steroidal anti-inflammatories (NSAID); Z79.2 Long term (current) use of antibiotics; Z79.899 Other long term (current) drug therapy; Z53.9 Procedure and treatment not carried out, unspecified reason

== ENCOUNTER → 2024-01-29 | Outpatient (CLI) | payer OTHER ==
[~2024-01-29] MED LIST changes: +CLEO300C2 PO
== END ==
LOC: M SOG 07:55
PROVIDERS: ATTEND Physician Assistant
DX: M54.50 Low back pain, unspecified (principal)

== ENCOUNTER → 2024-01-30 | Outpatient (CLI) | payer OTHER | LOC: M SOG 15:59 | PROVIDERS: ATTEND Physician Assistant | DX: M25.512 Pain in left shoulder (principal); M25.561 Pain in right knee ==

== ENCOUNTER → 2024-02-09 | Outpatient (CLI) | payer OTHER | LOC: M SOG 02-08 14:41 | PROVIDERS: ATTEND Physician Assistant | DX: M54.50 Low back pain, unspecified (principal); M53.86 Other specified dorsopathies, lumbar region ==

== ENCOUNTER 2024-05-07 16:55 | Inpatient (IN) | payer OTHER ==
[~2024-05-07] VITALS: Ht 175.3 cm; Wt 96.2 kg
[~2024-05-07 16:55] MED LIST changes: -LURA40TA2; +LURA40TA2 PO
[2024-05-07] MEDS ORDERED: DEXTROAMP-AMPHETAMIN (17:00)
[2024-05-07] MEDS ORDERED: AMPH1CAP16 PO (17:00)
[2024-05-07 17:57] LABS: HEMATOCRIT 48.9 % (42.0-52.0); HEMOGLOBIN 16.8 g/dl (13.5-17.5); MEAN CORPUSCULAR HEMOGLOBIN 29.3 pg (27.0-33.0); MEAN CORPUSCULAR HGB CONC 34.4 g/dl (32.0-36.5); MEAN CORPUSCULAR VOLUME 85.2 fl (80.0-96.0); PLATELET COUNT, AUTOMATED 278 10^3/uL (150-450); RED BLOOD COUNT 5.74 10^6/uL (4.30-6.10)
[2024-05-07] MEDS ORDERED: ADDE20TA PO (18:06)
[2024-05-07] MEDS ORDERED: HOME MED LIST COMPLETE! XX SCH (18:10)
[2024-05-07 18:23] LABS: PHENCYCLIDINE URINE NEGATIVE (NEGATIVE)
[2024-05-07 18:24] LABS: BARBITURATES URINE NEGATIVE (NEGATIVE); COCAINE METABOLITE URINE NEGATIVE (NEGATIVE); METHADONE URINE NEGATIVE (NEGATIVE)
[2024-05-07 18:26] LABS: AMPHETAMINES LEVEL URINE POSITIVE (NEGATIVE); BENZODIAZEPINES URINE POSITIVE (NEGATIVE); CANNABINOIDS URINE POSITIVE (NEGATIVE); OPIATES URINE POSITIVE (NEGATIVE)
[2024-05-07 18:28] LABS: ALBUMIN 4.4 G/DL (3.2-5.2); ALKALINE PHOSPHATASE 69 U/L (40-129); ALT/SGPT 20 U/L (7.0-40); AST/SGOT 9 U/L (<34); BILIRUBIN,DIRECT 0.5 MG/DL (<0.4); BILIRUBIN,TOTAL 3.7 MG/DL (0.3-1.2); BLOOD UREA NITROGEN 17 MG/DL (9-23); CALCIUM LEVEL 9.4 MG/DL (8.5-10.1); CARBON DIOXIDE LEVEL 21 MMOL/L (20-31); CHLORIDE LEVEL 104 MMOL/L (98-107); CREATININE FOR GFR 0.96 MG/DL (0.70-1.30); GLUCOSE, FASTING 92 MG/DL (60-100); POTASSIUM SERUM 3.8 MMOL/L (3.5-5.1); SALICYLATE LEVEL < 3.0 MG/DL (<30); SODIUM LEVEL 140 MMOL/L (136-145); TOTAL PROTEIN 7.4 G/DL (5.7-8.2)
[2024-05-07 18:30] LABS: THYROID STIMULATING HORMONE 0.321 uIU/ML (0.48-4.17)
[2024-05-07] MEDS ORDERED: MOM 30ML SUSPENSION UDC PO PRN (19:30)
[2024-05-07] MEDS: DIVALPROEX 250MG *ER* TAB PO SCH (22:31)
[2024-05-07] MEDS: LURASIDONE HCL 40MG TAB (LATUDA) PO SCH (22:31)
[2024-05-07] MEDS: PROPRANOLOL 20 MG TAB PO SCH (22:32)
[2024-05-08 00:16] VITALS: TEMP 97.8; O2SAT 98
[2024-05-08 06:35] VITALS: BP 102/50; TEMP 97.6; O2SAT 97
[2024-05-08] MEDS: AMPHETAMINE/DEXTROAMPHETAMINE 5 MG *ER* CAPSULE (ADDERALL XR) PO SCH (06:57)
[2024-05-08 08:23] LABS: FREE T4 1.84 NG/DL (0.83-1.43)
[2024-05-08 09:43] VITALS: BP 125/71
[2024-05-08] MEDS: ESCITALOPRAM OXALATE 10 MG TAB (LEXAPRO) PO SCH (09:46)
[2024-05-08] MEDS: IBUPROFEN 400MG TAB PO PRN (09:47)
[2024-05-08] MEDS: ADDERALL 5 MG TAB PO SCH (13:53)
[2024-05-08] MEDS: diphenhydrAMINE 25MG CAP PO PRN (13:53)
[2024-05-08 14:32] LABS: THYROID PEROXIDASE ANTIBODY < 28.0 U/ML (<60.0); THYROID STIMULATING HORMONE 0.443 uIU/ML (0.48-4.17)
[2024-05-08 14:33] LABS: FREE T4 1.79 NG/DL (0.83-1.43)
[2024-05-08] MEDS: GABAPENTIN 100 MG CAP PO SCH (16:07)
[2024-05-08] MEDS: PROPRANOLOL 20 MG TAB PO SCH (16:08)
[2024-05-08] MEDS: LURASIDONE 20 MG TAB (LATUDA) PO SCH (17:31)
[2024-05-08] MEDS: CHOLESTYRAMINE 4GM PWD PKT PO SCH (18:25)
[2024-05-08] MEDS ORDERED: CHOLESTYRAMINE 4GM PWD PKT PO SCH (20:00)
[2024-05-09 06:28] VITALS: BP 106/50; TEMP 97.3; O2SAT 100
[2024-05-09 08:12] LABS: CHOLESTEROL RISK RATIO 2.97 (<5); HDL CHOLESTEROL 41.7 MG/DL (>40); LDL CHOLESTEROL 67.5 MG/DL (<100); NON-HDL-C 82.3 MG/DL
[2024-05-09] MEDS: LIDOCAINE 5% (LIDODERM) PATCH TD SCH ×2 (08:59→09:00)
[2024-05-09] MEDS: predniSONE 20 MG TAB PO SCH (09:00)
[2024-05-09] MEDS: diphenhydrAMINE 25MG CAP PO ONE (14:09)
[2024-05-09 16:28] VITALS: BP 138/81; TEMP 97.6; O2SAT 96
[2024-05-09] MEDS: methocarbamoL 500 MG TAB PO PRN (16:38)
[2024-05-09] MEDS: QUEtiapine FUMARATE 50MG TAB PO SCH (19:58)
[2024-05-10 06:40] VITALS: BP 123/60; TEMP 97.2; O2SAT 99
[2024-05-10] MEDS: CARIPRAZINE 1.5MG CAPSULE (VRAYLAR) PO SCH (08:49)
[2024-05-10] MEDS: GABAPENTIN 100 MG CAP PO SCH (08:50)
[2024-05-10 15:20] VITALS: BP 139/70; TEMP 98; O2SAT 97
[2024-05-10 16:12] LABS: THRYOGLOBULIN ANTIBODIES (ATA) < 1 IU/mL (< or = 1); THYROGLOBULIN QUANTITATIVE 13.6 ng/mL (2.8-40.9)
[2024-05-10] MEDS: OLANZapine ORAL DISINTEGRATING TAB 5MG PO PRN (20:09)
[2024-05-10] MEDS: hydrOXYzine 50 MG TAB PO PRN (20:09)
[2024-05-10] MEDS: traZODone 50 MG TAB PO PRN (20:09)
[2024-05-11 06:53] VITALS: BP 128/68; TEMP 97.2; O2SAT 96
[2024-05-11 09:14] VITALS: BP 149/70
[2024-05-11] MEDS: GABAPENTIN 100 MG CAP PO SCH (15:21)
[2024-05-11 15:56] VITALS: BP 131/60; TEMP 97.1; O2SAT 98
[2024-05-12 06:57] VITALS: BP 141/66; TEMP 97.2; O2SAT 99
[2024-05-12 08:18] VITALS: BP 145/77
[2024-05-12] MEDS: CARIPRAZINE 3MG CAPSULE (VRAYLAR) PO SCH (08:22)
[2024-05-12] MEDS: MAALOX 30 ML SUSP *UDC PO PRN (14:13)
[2024-05-12 15:14] VITALS: BP 142/78; TEMP 97.6; O2SAT 98
[2024-05-12] MEDS: IBUPROFEN 800 MG TAB PO PRN (18:24)
[2024-05-12] MEDS: ACETAMINOPHEN 325 MG TAB PO PRN (23:20)
[2024-05-13 06:41] VITALS: BP 142/64; TEMP 96.7; O2SAT 98
[2024-05-13 08:33] VITALS: BP 147/81
[2024-05-13] MEDS: buPROPion **XL** TABLET 150MG (WELLBUTRIN XL) PO SCH (10:43)
[2024-05-13] MEDS: NICOTINE 21MG/24HR 1 EA TRANSDERMAL TD SCH (10:44)
[2024-05-13] MEDS: ADDERALL 5 MG TAB PO SCH (11:42)
[2024-05-13] MEDS: GABAPENTIN 400MG CAP PO SCH (15:24)
[2024-05-13 16:02] VITALS: BP 133/59; TEMP 98.3; O2SAT 98
[2024-05-13] MEDS: QUEtiapine FUMARATE 50MG TAB PO SCH (20:04)
[2024-05-14 06:21] VITALS: BP 135/79; TEMP 97.4; O2SAT 99
[2024-05-14] MEDS ORDERED: LIDOCAINE 5% (LIDODERM) PATCH TD SCH (09:00)
[2024-05-14] MEDS: SODIUM CHLORIDE NASAL 0.65% SPRAY BTL (OCEAN) PRN (14:12)
[2024-05-14 15:11] VITALS: BP 157/67; TEMP 97.1; O2SAT 98
[2024-05-14] MEDS: QUEtiapine FUMARATE 200 MG TAB PO SCH (20:03)
[2024-05-15 06:30] VITALS: BP 132/65; TEMP 97; O2SAT 98
[2024-05-15 08:03] VITALS: BP 138/71
[2024-05-15] MEDS ORDERED: PROP20TA PO (10:43)
[2024-05-15] MEDS ORDERED: METH-1164 PO (10:43)
[2024-05-15] MEDS ORDERED: NICO21PAT TD (10:43)
[2024-05-15] MEDS ORDERED: GABA-284 PO (10:43)
[2024-05-15] MEDS ORDERED: OLAN5ZYD PO (10:43)
[2024-05-15] MEDS ORDERED: TRAZ-252 PO (10:43)
[2024-05-15] MEDS ORDERED: VRAY3CAP PO (10:43)
[2024-05-15] MEDS ORDERED: PRED20TA PO (10:43)
[2024-05-15] MEDS ORDERED: BUPR150T12 PO (10:43)
[2024-05-15] MEDS ORDERED: LIDO5TD TD (10:43)
[2024-05-15] MEDS ORDERED: QUET200T2 PO (10:43)
[2024-05-15] MEDS ORDERED: LEXA1TAB PO (10:43)
[2024-05-15] MEDS ORDERED: METH-1386 PO (10:43)
[2024-05-15 15:14] VITALS: BP 137/90
== END 2024-05-15 15:25 | disposition home or self-care (01) | DRG 881 ==
LOC: M ED 16:55 → M ED INP 19:28 → M PSY 23:54
PROVIDERS: ADMIT Student in an Organized Health Care Education/Training Program; ATTEND Student in an Organized Health Care Education/Training Program
DX: F32.A Depression, unspecified (principal); R45.851 Suicidal ideations; F90.9 Attention-deficit hyperactivity disorder, unspecified type; F40.01 Agoraphobia with panic disorder; F15.90 Other stimulant use, unspecified, uncomplicated; F12.90 Cannabis use, unspecified, uncomplicated; E05.90 Thyrotoxicosis, unspecified without thyrotoxic crisis or storm; M25.551 Pain in right hip; M25.552 Pain in left hip; R00.2 Palpitations; Z91.51 Personal history of suicidal behavior; Z63.0 Problems in relationship with spouse or partner; Z56.0 Unemployment, unspecified; Z65.3 Problems related to other legal circumstances; Z79.899 Other long term (current) drug therapy

== ENCOUNTER 2024-05-22 17:14 | Inpatient (IN) | payer OTHER ==
[~2024-05-22] VITALS: Ht 175.3 cm; Wt 96.0 kg
[~2024-05-22 17:14] MED LIST changes: +ADDE20TA PO; +AMPH1CAP16 PO; +BUPR150T12 PO; +DEXTROAMP-AMPHETAMIN; +GABA-284 PO; +LEXA1TAB PO; +LIDO5TD TD; +METH-1386 PO; +PRED20TA PO; +PROP20TA PO; +QUET200T2 PO; +VRAY3CAP PO
[2024-05-22 17:46] LABS: BASO # 0.1 10^3/uL (0.0-0.2); BASO % 0.5 % (0.0-1.0); EOS # 0.3 10^3/uL (0.0-0.5); EOS % 2.3 % (0.0-3.0); HEMATOCRIT 44.8 % (42.0-52.0); HEMOGLOBIN 15.8 g/dl (13.5-17.5); LYMPH # 1.9 10^3/uL (1.5-5.0); LYMPH % 13.3 % (24.0-44.0); MEAN CORPUSCULAR HEMOGLOBIN 29.8 pg (27.0-33.0); MEAN CORPUSCULAR HGB CONC 35.3 g/dl (32.0-36.5); MEAN CORPUSCULAR VOLUME 84.4 fl (80.0-96.0); MONO # 1.4 10^3/uL (0.0-0.8); MONO % 9.6 % (2.0-8.0); NEUTROPHILS # 10.4 10^3/uL (1.5-8.5); NEUTROPHILS % 73.9 % (36.0-66.0); PLATELET COUNT, AUTOMATED 258 10^3/uL (150-450); RED BLOOD COUNT 5.31 10^6/uL (4.30-6.10); WHITE BLOOD COUNT 14.1 10^3/uL (4.0-10.0)
[2024-05-22 18:14] LABS: ETHYL ALCOHOL (ETHANOL) < 0.003 % (0.000-0.010)
[2024-05-22 18:15] LABS: BLOOD UREA NITROGEN 26 MG/DL (9-23); CALCIUM LEVEL 9.8 MG/DL (8.5-10.1); CARBON DIOXIDE LEVEL 25 MMOL/L (20-31); CHLORIDE LEVEL 104 MMOL/L (98-107); CREATININE FOR GFR 0.98 MG/DL (0.70-1.30); GLUCOSE, FASTING 85 MG/DL (60-100); SODIUM LEVEL 139 MMOL/L (136-145)
[2024-05-22 18:38] LABS: BARBITURATES URINE NEGATIVE (NEGATIVE); COCAINE METABOLITE URINE NEGATIVE (NEGATIVE)
[2024-05-22 18:39] LABS: METHADONE URINE NEGATIVE (NEGATIVE); OPIATES URINE NEGATIVE (NEGATIVE); PHENCYCLIDINE URINE NEGATIVE (NEGATIVE)
[2024-05-22 18:43] LABS: AMPHETAMINES LEVEL URINE POSITIVE (NEGATIVE); BENZODIAZEPINES URINE POSITIVE (NEGATIVE); CANNABINOIDS URINE POSITIVE (NEGATIVE)
[2024-05-22] MEDS ORDERED: DOXY-441 PO (20:16)
[2024-05-22] MEDS ORDERED: MOM 30ML SUSPENSION UDC PO PRN (21:05)
[2024-05-22] MEDS ORDERED: MAALOX 30 ML SUSP *UDC PO PRN (21:05)
[2024-05-22] MEDS ORDERED: PRED20TA PO (22:13)
[2024-05-22] MEDS ORDERED: BUPR150T12 PO (22:13)
[2024-05-22] MEDS ORDERED: ADDE20CA3 PO (22:13)
[2024-05-22] MEDS ORDERED: OLAN5ZYD PO (22:13)
[2024-05-22] MEDS ORDERED: NICO21DI38 TOP (22:13)
[2024-05-22] MEDS ORDERED: METH-1164 PO (22:13)
[2024-05-22] MEDS ORDERED: QUET200T2 PO (22:13)
[2024-05-22] MEDS ORDERED: GABA-284 PO (22:13)
[2024-05-22] MEDS ORDERED: METH-1386 PO (22:13)
[2024-05-22] MEDS ORDERED: VRAY3CAP PO (22:13)
[2024-05-22] MEDS ORDERED: LEXA1TAB PO (22:13)
[2024-05-22] MEDS ORDERED: PROP20TA72 PO (22:13)
[2024-05-22] MEDS ORDERED: HOME MED LIST COMPLETE! XX SCH (22:15)
[2024-05-22] MEDS: DOXYCYCLINE HYCLATE 100MG TABLET PO ONE (23:18)
[2024-05-23] MEDS: traZODone 50 MG TAB PO PRN (00:12)
[2024-05-23] MEDS: OLANZapine ORAL DISINTEGRATING TAB 5MG PO PRN (00:12)
[2024-05-23] MEDS: GABAPENTIN 400MG CAP PO SCH (09:54)
[2024-05-23] MEDS: CARIPRAZINE 3MG CAPSULE (VRAYLAR) PO SCH (09:54)
[2024-05-23] MEDS: PROPRANOLOL 20 MG TAB PO SCH (09:54)
[2024-05-23] MEDS: NICOTINE 21MG/24HR 1 EA TRANSDERMAL TOP SCH (10:27)
[2024-05-23] MEDS: ACETAMINOPHEN 325 MG TAB PO PRN (11:02)
[2024-05-23 15:51] LABS: THYROID STIMULATING HORMONE 1.466 uIU/ML (0.48-4.17)
[2024-05-23 15:52] LABS: FREE T4 2.21 NG/DL (0.83-1.43)
[2024-05-23 16:18] VITALS: BP 136/80; TEMP 97.4; O2SAT 100
[2024-05-23 16:56] LABS: C REACTIVE PROTEIN QUANTITATIV 0.87 MG/DL (<1.0)
[2024-05-23 17:13] LABS: ERYTHROCYTE SEDIMENTATION RATE 19 mm/hr (0-15)
[2024-05-23] MEDS: AUGMENTIN 875 MG TAB PO ONE (18:21)
[2024-05-23] MEDS: DOXYCYCLINE HYCLATE 100MG TABLET PO ONE (18:21)
[2024-05-23] MEDS ORDERED: PROHANCE 279.3MG/ML 5ML VIAL As Ordered ONE (19:46)
[2024-05-23] MEDS ORDERED: PROHANCE 279.3MG/ML 15ML VIAL As Ordered ONE (19:46)
[2024-05-23] MEDS: QUEtiapine FUMARATE 200 MG TAB PO SCH (20:35)
[2024-05-23] MEDS: PROPRANOLOL 20 MG TAB PO ONE (21:24)
[2024-05-24 05:47] LABS: HEMATOCRIT 41.4 % (42.0-52.0); MEAN CORPUSCULAR HEMOGLOBIN 29.7 pg (27.0-33.0); MEAN CORPUSCULAR HGB CONC 33.8 g/dl (32.0-36.5); MEAN CORPUSCULAR VOLUME 87.7 fl (80.0-96.0); PLATELET COUNT, AUTOMATED 203 10^3/uL (150-450); RED BLOOD COUNT 4.72 10^6/uL (4.30-6.10); WHITE BLOOD COUNT 5.4 10^3/uL (4.0-10.0)
[2024-05-24 06:18] LABS: BLOOD UREA NITROGEN 19 MG/DL (9-23); CALCIUM LEVEL 8.7 MG/DL (8.5-10.1); CARBON DIOXIDE LEVEL 29 MMOL/L (20-31); CHLORIDE LEVEL 105 MMOL/L (98-107); CREATININE FOR GFR 0.83 MG/DL (0.70-1.30); GLOMERULAR FILTRATION RATE > 60.0 (>60); GLUCOSE, FASTING 96 MG/DL (60-100); POTASSIUM SERUM 3.8 MMOL/L (3.5-5.1); SODIUM LEVEL 140 MMOL/L (136-145)
[2024-05-24 06:39] VITALS: BP 116/56; TEMP 97.5; O2SAT 98
[2024-05-24] MEDS: DOXYCYCLINE HYCLATE 100MG TABLET PO SCH (09:37)
[2024-05-24] MEDS: AUGMENTIN 875 MG TAB PO SCH (09:38)
[2024-05-24] MEDS: PROPRANOLOL 20 MG TAB PO SCH (09:38)
[2024-05-24] MEDS: OLANZapine ORAL DISINTEGRATING TAB 5MG PO PRN (15:34)
[2024-05-24 16:59] VITALS: BP 138/81; TEMP 97.6; O2SAT 97
[2024-05-24] MEDS: methocarbamoL 500 MG TAB PO PRN (18:40)
[2024-05-25 06:53] VITALS: BP 109/50; TEMP 96.8; O2SAT 100
[2024-05-25 15:54] VITALS: BP 120/56; TEMP 98.6; O2SAT 97
[2024-05-26] MEDS: AMPHETAMINE/DEXTROAMPHETAMINE 5 MG *ER* CAPSULE (ADDERALL XR) PO SCH (08:49)
[2024-05-26] MEDS: diphenhydrAMINE 25MG CAP PO PRN (14:48)
[2024-05-26 15:29] VITALS: BP 142/60; TEMP 97.5; O2SAT 98
[2024-05-27 06:41] VITALS: BP 124/62; TEMP 97.6; O2SAT 98
[2024-05-27 08:39] LABS: FREE T4 1.24 NG/DL (0.83-1.43); THYROID STIMULATING HORMONE 0.157 uIU/ML (0.48-4.17)
[2024-05-27 15:37] VITALS: BP 141/84; TEMP 97.6; O2SAT 98
[2024-05-28 06:53] VITALS: BP 130/63; TEMP 98; O2SAT 97
[2024-05-28] MEDS: OLANZapine 10 MG TAB PO PRN (12:02)
[2024-05-28 16:14] VITALS: BP 115/95; TEMP 98; O2SAT 99
[2024-05-28] MEDS: IBUPROFEN 400MG TAB PO PRN (20:10)
[2024-05-29 06:14] VITALS: BP 123/60; TEMP 97.8; O2SAT 99
[2024-05-29] MEDS ORDERED: DOXY100T PO (07:45)
[2024-05-29] MEDS ORDERED: NICO21DI38 TOP (07:45)
[2024-05-29] MEDS ORDERED: GABA-284 PO (07:45)
[2024-05-29] MEDS ORDERED: METH-1386 PO (07:45)
[2024-05-29] MEDS ORDERED: QUET200T2 PO (07:45)
[2024-05-29] MEDS ORDERED: PROP40TA62 PO (07:45)
[2024-05-29] MEDS ORDERED: VRAY3CAP PO (07:45)
[2024-05-29] MEDS ORDERED: METH-1164 PO (07:45)
[2024-05-29] MEDS ORDERED: TRAZ-252 PO (07:45)
[2024-05-29] MEDS ORDERED: OLAN1TAB20 PO (07:45)
[2024-05-29] MEDS ORDERED: AMOX875T2 PO (07:45)
[2024-05-29 08:12] VITALS: BP 123/60
== END 2024-05-29 10:30 | DRG 885 ==
LOC: M ED 17:14 → EDBD 17:14 → M ED INP 21:05 → M PSY 23:55
PROVIDERS: ADMIT Psychiatry & Neurology Neurology; ATTEND Psychiatry & Neurology Psychiatry
DX: F29 Unspecified psychosis not due to a substance or known physiological condition (principal); L03.113 Cellulitis of right upper limb; F31.9 Bipolar disorder, unspecified; F40.01 Agoraphobia with panic disorder; F15.229 Other stimulant dependence with intoxication, unspecified; F41.1 Generalized anxiety disorder; F12.10 Cannabis abuse, uncomplicated; E05.00 Thyrotoxicosis with diffuse goiter without thyrotoxic crisis or storm; Z79.899 Other long term (current) drug therapy

== ENCOUNTER 2024-09-02 05:45 | Emergency (ER) | payer OTHER ==
[~2024-09-02] VITALS: Ht 177.8 cm; Wt 98.8 kg
[~2024-09-02 05:45] MED LIST changes: +ADDE20CA3 PO; +AMOX875T2 PO; +DEPA250T PO; -DEPA250T2 PO; +DOXY-441 PO; +DOXY100T PO; +NICO21DI38 TOP; +OLAN1TAB20 PO; +PROP40TA62 PO
[2024-09-02] MEDS: NS (Normal Saline) 0.9% 1,000 ML IV ONE ×2 (08:20→12:59)
[2024-09-02] MEDS: PANTOPRAZOLE 40MG VIAL IV ONE (08:21)
[2024-09-02] MEDS: PROMETHAZINE 25MG/ML 1ML VIAL IV ONE (08:21)
[2024-09-02 08:32] LABS: BASO # 0.0 10^3/uL (0.0-0.2); BASO % 0.3 % (0.0-1.0); EOS # 0.0 10^3/uL (0.0-0.5); EOS % 0.1 % (0.0-3.0); LYMPH # 0.7 10^3/uL (1.5-5.0); LYMPH % 5.8 % (24.0-44.0); MONO # 0.5 10^3/uL (0.0-0.8); MONO % 4.4 % (2.0-8.0); NEUTROPHILS # 10.3 10^3/uL (1.5-8.5); NEUTROPHILS % 88.8 % (36.0-66.0); PLATELET COUNT, AUTOMATED 250 10^3/uL (150-450)
[2024-09-02 09:07] LABS: ALT/SGPT 28 U/L (7.0-40); AST/SGOT 22 U/L (<34); CALCIUM LEVEL 10.0 MG/DL (8.5-10.1); CARBON DIOXIDE LEVEL 26 MMOL/L (20-31); CHLORIDE LEVEL 97 MMOL/L (98-107); CREATININE FOR GFR 1.00 MG/DL (0.70-1.30); GLOMERULAR FILTRATION RATE > 90.0 (>60); POTASSIUM SERUM 3.5 MMOL/L (3.5-5.1); SODIUM LEVEL 140 MMOL/L (136-145)
[2024-09-02] MEDS ORDERED: ISOVUE-370 76% 100 ML VIAL As Ordered ONE (10:59)
[2024-09-02] MEDS: ONDANSETRON 4MG 2ML VIAL IV ONE (11:54)
[2024-09-02 12:30] VITALS: BP 138/59; O2SAT 99
[2024-09-02] MEDS ORDERED: ONDA-83 PO (12:46)
[2024-09-02] MEDS ORDERED: TRAZ1TAB10 PO (12:46)
[2024-09-02] MEDS ORDERED: PRAZ1CAP PO (12:46)
[2024-09-02] MEDS ORDERED: PROP40TA62 PO (12:46)
[2024-09-02] MEDS ORDERED: OLAN1TAB20 PO (12:46)
[2024-09-02] MEDS ORDERED: GABA-1635 PO (12:46)
[2024-09-02] MEDS ORDERED: LISD40CA PO (12:46)
[2024-09-02] MEDS ORDERED: METH-1164 PO (12:46)
[2024-09-02] MEDS ORDERED: HOME MED LIST COMPLETE! XX SCH (12:50)
[2024-09-02 13:47] VITALS: TEMP 98.9
== END 2024-09-02 14:17 | disposition home or self-care (01) ==
LOC: M ED 05:45
DX: R11.10 Vomiting, unspecified (principal); R94.31 Abnormal electrocardiogram [ECG] [EKG]; I10 Essential (primary) hypertension; F90.9 Attention-deficit hyperactivity disorder, unspecified type; F41.9 Anxiety disorder, unspecified; F31.9 Bipolar disorder, unspecified; Z79.899 Other long term (current) drug therapy
CPT/HCPCS: 71046; 74177; 80047; 80048; 80076; 83605; 83690; 85025; 86850; 86900; 86901; 93005; 93041; 96361; 96374; 96375; 99285; J2405; J2470; J2550; Q9967

== ENCOUNTER 2024-09-04 05:15 | Emergency (ER) | payer OTHER ==
[~2024-09-04] VITALS: Ht 175.3 cm; Wt 97.9 kg
[~2024-09-04 05:15] MED LIST changes: +GABA-1635 PO; +LISD40CA PO; +ONDA-83 PO; +PRAZ1CAP PO; +TRAZ1TAB10 PO
[2024-09-04 05:19] VITALS: BP 174/78; TEMP 98.2; O2SAT 100
== END 2024-09-04 07:03 | disposition left against medical advice (07) ==
LOC: M ED 05:15
DX: Z53.21 Procedure and treatment not carried out due to patient leaving prior to being seen by health care provider (principal)

== ENCOUNTER 2024-09-04 08:53 | Emergency (ER) | payer OTHER ==
[~2024-09-04] VITALS: Ht 175.3 cm; Wt 98.0 kg
[2024-09-04 08:55] VITALS: BP 139/73; TEMP 98.1; O2SAT 97
== END 2024-09-04 10:12 | disposition left against medical advice (07) ==
LOC: M ED 08:53
DX: Z53.21 Procedure and treatment not carried out due to patient leaving prior to being seen by health care provider (principal)

== ENCOUNTER → 2024-09-30 | Outpatient (CLI) | payer OTHER | LOC: M EKG 11:59 | PROVIDERS: ATTEND Student in an Organized Health Care Education/Training Program | DX: Z01.818 Encounter for other preprocedural examination (principal); I10 Essential (primary) hypertension ==

== ENCOUNTER 2024-10-01 11:30 | Day surgery (SDC) | payer OTHER ==
[~2024-10-01] VITALS: Ht 175.3 cm; Wt 101.6 kg
[2024-10-01] MEDS: LR 1,000 ML IV SCH (12:10)
[2024-10-01] MEDS ORDERED: MIDAZOLAM INJ 2 MG/2 ML VIAL As Ordered ONE (12:42)
[2024-10-01] MEDS: ceFAZolin SODIUM 2 GM in DEXTROSE 5% (D5W) ADV/MINI-BAG 50 ML IV ONE (13:12)
[2024-10-01] MEDS: LIDOCAINE W/EPINEPHrine 1% 20 ML VIAL As Ordered ONE (13:38)
[2024-10-01] MEDS: MORPHINE 10 MG/ML 1 ML VIAL As Ordered ONE (13:48)
[2024-10-01] MEDS ORDERED: MEPERIDINE 25 MG/ML 1 ML VIAL IV PRN (14:15)
[2024-10-01] MEDS ORDERED: HYDROMORPHONE HCL 0.5 MG/0.5 ML SYRINGE IV PRN (14:15)
[2024-10-01] MEDS ORDERED: LR 1,000 ML IV SCH (14:15)
[2024-10-01] MEDS ORDERED: ONDANSETRON 4MG 2ML VIAL IV PRN (14:15)
[2024-10-01 15:10] VITALS: BP 153/80; TEMP 97.3; O2SAT 99
== END 2024-10-01 15:35 | disposition home or self-care (01) ==
LOC: M SDC 11:30
PROVIDERS: ATTEND Neuromusculoskeletal Medicine, Sports Medicine
DX: S83.231A Complex tear of medial meniscus, current injury, right knee, initial encounter (principal); M22.41 Chondromalacia patellae, right knee; M65.961 Unspecified synovitis and tenosynovitis, right lower leg; M23.41 Loose body in knee, right knee; V09.9XXA Pedestrian injured in unspecified transport accident, initial encounter; Y93.9 Activity, unspecified; Y92.9 Unspecified place or not applicable; I10 Essential (primary) hypertension; F31.9 Bipolar disorder, unspecified; Z79.899 Other long term (current) drug therapy; F43.10 Post-traumatic stress disorder, unspecified; F90.9 Attention-deficit hyperactivity disorder, unspecified type
CPT/HCPCS: 29881; J0665; J0690; J2250; J3010

== ENCOUNTER 2024-11-15 15:30 | Emergency (ER) | payer OTHER, SELFPAY ==
[~2024-11-15 15:30] MED LIST changes: -IBUP-1022 PO; +IBUP600T42 PO
== END 2024-11-15 16:33 | disposition left against medical advice (07) ==
LOC: M ED 15:30
DX: Z53.21 Procedure and treatment not carried out due to patient leaving prior to being seen by health care provider (principal)

== ENCOUNTER 2024-11-22 12:27 | Inpatient (IN) | payer OTHER, SELFPAY ==
[~2024-11-22] VITALS: Ht 175.3 cm; Wt 101.8 kg
[2024-11-22] MEDS ORDERED: AMPH1TAB2 PO (12:37)
[2024-11-22 13:51] LABS: AMPHETAMINES LEVEL URINE NEGATIVE (NEGATIVE); BARBITURATES URINE NEGATIVE (NEGATIVE); BENZODIAZEPINES URINE NEGATIVE (NEGATIVE); COCAINE METABOLITE URINE NEGATIVE (NEGATIVE); METHADONE URINE NEGATIVE (NEGATIVE); OPIATES URINE NEGATIVE (NEGATIVE); PHENCYCLIDINE URINE NEGATIVE (NEGATIVE)
[2024-11-22 13:55] LABS: CANNABINOIDS URINE POSITIVE (NEGATIVE)
[2024-11-22 14:37] LABS: PLATELET COUNT, AUTOMATED 199 10^3/uL (150-450)
[2024-11-22 15:10] LABS: ETHYL ALCOHOL (ETHANOL) < 0.003 % (0.000-0.010)
[2024-11-22 15:12] LABS: SALICYLATE LEVEL < 3.0 MG/DL (<30)
[2024-11-22 15:14] LABS: ALT/SGPT 19 U/L (7.0-40); AST/SGOT 18 U/L (<34); CALCIUM LEVEL 8.3 MG/DL (8.5-10.1); CARBON DIOXIDE LEVEL 29 MMOL/L (20-31); CHLORIDE LEVEL 108 MMOL/L (98-107); CREATININE FOR GFR 0.95 MG/DL (0.70-1.30); GLOMERULAR FILTRATION RATE > 90.0 (>60); POTASSIUM SERUM 3.8 MMOL/L (3.5-5.1); SODIUM LEVEL 143 MMOL/L (136-145)
[2024-11-22] MEDS ORDERED: VYVA60CA PO (16:16)
[2024-11-22] MEDS ORDERED: HOME MED LIST COMPLETE! XX SCH (16:20)
[2024-11-22] MEDS ORDERED: IBUPROFEN 400 MG TAB PO PRN (18:25)
[2024-11-22] MEDS ORDERED: ACETAMINOPHEN 325 MG TAB PO PRN (18:25)
[2024-11-22] MEDS ORDERED: MOM 30 ML SUSPENSION UDC PO PRN (18:25)
[2024-11-22 21:56] VITALS: BP 138/67; TEMP 97.3; O2SAT 100
[2024-11-23 06:29] VITALS: BP 133/58; TEMP 97.1; O2SAT 99
[2024-11-23] MEDS: OLANZapine 5 MG TAB PO PRN (07:36)
[2024-11-23] MEDS: NICOTINE 21 MG/24 HR 1 EA TRANSDERMAL TD SCH (12:33)
[2024-11-23 13:44] VITALS: BP 145/89; TEMP 98.4; O2SAT 99
[2024-11-23] MEDS: PROPRANOLOL 20 MG TAB PO PRN (13:45)
[2024-11-23] MEDS: CARIPRAZINE 3MG CAPSULE PO SCH (15:09)
[2024-11-23] MEDS: PRAZOSIN 1 MG CAP PO SCH (20:30)
[2024-11-23] MEDS: PROPRANOLOL 20 MG TAB PO SCH (20:30)
[2024-11-23] MEDS: traZODone 50 MG TAB PO PRN (20:30)
[2024-11-24 06:45] VITALS: BP 137/73; TEMP 97.7; O2SAT 100
[2024-11-24 08:24] VITALS: BP 133/72
[2024-11-24] MEDS ORDERED: ENTER DRUG NAME HERE (PATIENT'S OWN MED) PO SCH (09:00)
[2024-11-24 15:19] VITALS: BP 145/79; TEMP 98; O2SAT 99
[2024-11-24] MEDS: GABAPENTIN 100 MG CAP PO SCH (16:33)
[2024-11-24] MEDS: MAALOX 30 ML SUSP *UDC PO PRN (23:16)
[2024-11-25] MEDS ORDERED: FAMOTIDINE 20 MG TAB PO PRN (02:45)
[2024-11-25] MEDS: CALCIUM CARBONATE 500 MG CHEW U/D PO PRN (02:51)
[2024-11-25 06:33] VITALS: BP 147/77; TEMP 97.1; O2SAT 99
[2024-11-25] MEDS: GABAPENTIN 100 MG CAP PO SCH (16:14)
[2024-11-25] MEDS: PROPRANOLOL 20 MG TAB PO SCH (16:14)
[2024-11-26 06:25] VITALS: BP 131/60; TEMP 97.7; O2SAT 100
[2024-11-26 08:07] VITALS: BP 135/74
[2024-11-26 08:08] VITALS: BP 135/74
[2024-11-26] MEDS ORDERED: QUET200T2 PO (08:13)
[2024-11-26] MEDS ORDERED: PRAZ1CAP PO (08:13)
[2024-11-26] MEDS ORDERED: TRAZ1TAB10 PO (08:13)
[2024-11-26] MEDS ORDERED: GABA-1171 PO (08:13)
[2024-11-26] MEDS ORDERED: PROP20TA72 PO (08:13)
== END 2024-11-26 09:51 | disposition home or self-care (01) | DRG 885 ==
LOC: M ED 12:27 → M ED INP 18:23 → M PSY 21:48
PROVIDERS: ADMIT Student in an Organized Health Care Education/Training Program; ATTEND General Practice
DX: F31.81 Bipolar II disorder (principal); R45.851 Suicidal ideations; F41.1 Generalized anxiety disorder; F43.10 Post-traumatic stress disorder, unspecified; F41.0 Panic disorder [episodic paroxysmal anxiety]; F90.9 Attention-deficit hyperactivity disorder, unspecified type; F12.10 Cannabis abuse, uncomplicated; F15.10 Other stimulant abuse, uncomplicated; Z79.899 Other long term (current) drug therapy; Z56.0 Unemployment, unspecified; Z91.51 Personal history of suicidal behavior